=== PATIENT | female | born 1940 | race Caucasian/White ===

== ENCOUNTER → 2017-04-28 | Outpatient (CLI) | payer OTHER, MEDICARE ==
[2015-03-27 09:37] VITALS: BP 100/63
== END ==
LOC: LAB 09:38
PROVIDERS: ATTEND Internal Medicine Gastroenterology
DX: Z80.0 Family history of malignant neoplasm of digestive organs (principal); K57.30 Diverticulosis of large intestine without perforation or abscess without bleeding
CPT/HCPCS: 82270